=== PATIENT | female | born 1990 | race Caucasian/White ===

== ENCOUNTER 2023-03-31 14:37 | Emergency (ER) | payer OTHER, MEDICAID, SELFPAY ==
[2023-03-31] VITALS (8 sets, daily range): BP systolic 101–119; BP diastolic 57–66; PULSE 72–79; RESP 15–32; TEMP 36.8; O2SAT 98–100; BMI 32.6
--- NOTE | 2023-03-31 14:52 | DI.RAD.S_ITS ---
PROCEDURE: XR CHEST 1V INDICATIONS: Shortness of breath TECHNIQUE: One view of the chest was acquired. COMPARISON: None. FINDINGS: Surgical changes and devices: None. Lungs and pleura: Lungs are clear. No pleural effusions or pneumothorax. Mediastinum: Mediastinal contours appear normal. Heart size is normal. Bones and chest wall: No suspicious bony lesions. Overlying soft tissues appear unremarkable. IMPRESSION: No acute cardiopulmonary abnormality is seen. Dictated by: Ignacio Hoyos M.D. on 03/31/2023 at 15:23 Approved by: Ignacio Hoyos M.D. on 03/31/2023 at 15:23
[2023-03-31 15:15] LABS: Prothrombin Time 11.2 SECONDS (9.4-12.5)
[2023-03-31 15:21] LABS: Alanine Aminotransferase 10 IU/L (<35); Albumin 3.9 g/dL (3.5-5.0); Albumin Globulin Ratio 1.1 (1.0-2.8); Alkaline Phosphatase 108 U/L (38-126); Aspartate Aminotransferase 17 IU/L (14-36); BUN Creatinine Ratio 16.7 (6-22); Bilirubin Total 0.4 mg/dL (0.2-1.3); Blood Urea Nitrogen 6 mg/dL (7-17); Calcium 9.2 mg/dL (8.4-10.2); Carbon Dioxide 24 mmol/L (22-32); Chloride 103 mmol/L (98-107); Estimated Glomerular Filt Rate > 60 mL/min (>60); Globulin 3.5 g/dL (1.7-4.1); Glucose 73 mg/dL (70-100); HEMOLYSIS < 15 (0-50); Potassium 3.5 mmol/L (3.4-5.1); Sodium 134 mmol/L (137-145); Total Protein 7.4 g/dL (6.3-8.2)
[2023-03-31 15:23] LABS: Lactate (Lactic Acid) 0.8 mmol/L (0.7-2.1)
[2023-03-31 15:27] LABS: Add Manual Diff / Slide Review NO; Basophils Absolute Auto 100 /uL (0-100); Basophils Percent Auto 0.6 % (0-2); Eosinophils Absolute Auto 100 /uL (0-450); Eosinophils Percent Auto 0.5 % (2-4); Hematocrit 32.8 % (36-46); Hemoglobin 11.2 g/dL (12.0-16.0); Lymphocytes Absolute Auto 1700 /uL (1100-4500); Lymphocytes Percent Auto 14.5 % (25-40); Mean Corpuscular HGB Conc 34.1 % (30-36); Mean Corpuscular Hemoglobin 28.9 PG (26-34); Mean Corpuscular Volume 84.6 fL (80-100); Monocytes Absolute Auto 500 /uL (0-900); Monocytes Percent Auto 4.1 % (3-14); Neutrophils Absolute Auto 9500 /uL (1500-7000); Neutrophils Percent Auto 80.3 % (50-75); Platelet Count 485 X10^3/uL (150-400); Red Blood Cell Count 3.87 X10^6/uL (4.0-5.2); Red Cell Distribution Width 13.6 % (11.6-14.8); White Blood Cell Count 11.9 X10^3/uL (4.5-11.0)
[2023-03-31 15:32] LABS: NT-proBNP (BNP-Adult 18+) 31 pg/mL (<125); Troponin I < 0.012 ng/mL (0.01-0.034)
--- NOTE | 2023-03-31 16:39 | ED_ITS ---
HPI - SOB/Dyspnea General Chief Complaint: Shortness of Breath/Dyspnea Stated Complaint: SOB elevated heart rate numbness in legs Time Seen by Provider: 03/31/23 16:20 Source: patient Mode of arrival: Ambulatory Limitations: no limitations History of Present Illness HPI Narrative: Patient is a 32-year-old female without significant past medical history presenting today with chest pain in her palpitations. She reports that she was sitting still when her heart rate went up to 101 according to her walks. She felt a little short of breath but it quickly resolved. She denies any fever chills. No recent travel not on control no hemoptysis. No abdominal Related Data Allergies Allergy/AdvReac Type Severity Reaction Status Date / Time No Known Drug Allergies Allergy Verified 03/31/23 14:48 Patient History Social History Smoking Status: Unknown if ever smoked Smoking Status: Unknown if ever smoked alcohol intake frequency: holidays/special occasions only Substance Use Type: does not use Exam Initial Vital Signs Initial Vital Signs: Vital Signs Temperature 98.2 F 03/31/23 14:40 Pulse Rate 76 03/31/23 14:40 Respiratory Rate 15 03/31/23 14:40 Blood Pressure 119/66 03/31/23 14:40 Pulse Oximetry 99 03/31/23 14:40 Oxygen Delivery Method Room Air 03/31/23 14:40 GENERAL: Alert pleasant well-appearing 32-year-old and in no acute distress. HEENT: Head atraumatic,EOMI, pupils reactive, face symmetric, moist mucous membranes CARDIOVASCULAR: Regular rate and rhythm without murmurs, rubs or gallops. RESPIRATORY: Breath sounds equal bilaterally, no wheezes rales or rhonchi. ABDOMEN: Soft, nontender. Normoactive bowel sounds all 4 quadrants. No guarding or rebound. EXTREMITIES: Normal range of motion, no clubbing or edema. Neurovascularly intact NEUROLOGICAL: Alert and oriented x4.Normal gait and speech. SKIN: Warm, dry, no laceration, no petechiae, no rashes or lesions. Scores HEART Score Heart Score history: Slightly Suspicious Heart Score EKG: Normal Heart Score Age: < 45 years old Heart Score risk factors: No known risk factors Heart Score troponin: < or = to normal limit Heart Score Total: 0 PERC Score Age greater than or equal to 50 years: No Heart rate greater than or equal to 100 bpm: No Room Air O2 Sat less than 95%: No Unilateral leg swelling: No Recent trauma or surgery: No Hemoptysis: No Prior PE or DVT: No Hormone Use: No Total PERC Score: 0 Course Orders Ordered: ED Orders 03/31/23 14:52 XR chest 1V Stat EKG-12 Lead Stat Measure peak expiratory flow ONCE RT Consult Eval and Treat NOW 03/31/23 14:55 Complete Blood Count AUTO DIFF Stat Comprehensive Metabolic Panel Stat Lactate (Lactic Acid) Stat NT-proBNP (BNP-Adult 18+) Stat Prothrombin Time INR Stat Troponin I Stat Vital Signs Vital signs: Vital Signs - 8 hr 03/31/23 14:40 03/31/23 14:46 03/31/23 14:46 Temperature 98.2 F Pulse Rate 76 Respiratory Rate 15 Blood Pressure 119/66 119/66 Pulse Oximetry 99 99 Oxygen Delivery Method Room Air 03/31/23 15:00 03/31/23 15:30 03/31/23 16:00 Temperature Pulse Rate 79 76 78 Respiratory Rate 22 28 H 32 H Blood Pressure Pulse Oximetry 98 99 100 Oxygen Delivery Method MDM - SOB/Dyspnea Lab Data 03/31/23 14:55 03/31/23 14:55 Labs: Lab Results 03/31/23 Range/Units 14:55 WBC 11.9 H (4.5-11.0) X10^3/uL RBC 3.87 L (4.0-5.2) X10^6/uL Hgb 11.2 L (12.0-16.0) g/dL Hct 32.8 L (36-46) % MCV 84.6 (80-100) fL MCH 28.9 (26-34) PG MCHC 34.1 (30-36) % RDW 13.6 (11.6-14.8) % Plt Count 485 H (150-400) X10^3/uL Neut % (Auto) 80.3 H (50-75) % Lymph % (Auto) 14.5 L (25-40) % [place] % (Auto) 4.1 (3-14) % Eos % (Auto) 0.5 L (2-4) % Baso % (Auto) 0.6 (0-2) % Neut # (Auto) 9500 H (9078-4611) /uL Lymph # (Auto) 1700 (9998-2123) /uL [place] # (Auto) 500 (0-900) /uL Eos # (Auto) 100 (0-450) /uL Baso # (Auto) 100 (0-100) /uL PT 11.2 (9.4-12.5) SECONDS INR 1.0 (0.9-1.3) Sodium 134 L (137-145) mmol/L Potassium 3.5 (3.4-5.1) mmol/L Chloride 103 (98-107) mmol/L Carbon Dioxide 24 (22-32) mmol/L BUN 6 L (7-17) mg/dL Creatinine 0.36 L (0.52-1.04) mg/dL Estimated GFR > 60 (>60) mL/min BUN/Creatinine Ratio 16.7 (6-22) Glucose 73 (70-100) mg/dL Lactate 0.8 (0.7-2.1) mmol/L Calcium 9.2 (8.4-10.2) mg/dL Total Bilirubin 0.4 (0.2-1.3) mg/dL AST 17 (14-36) IU/L ALT 10 (<35) IU/L Alkaline Phosphatase 108 (38-126) U/L Troponin I < 0.012 (0.01-0.034) ng/mL NT-Pro-B Natriuret Pep 31 (<125) pg/mL Total Protein 7.4 (6.3-8.2) g/dL Albumin 3.9 (3.5-5.0) g/dL Globulin 3.5 (1.7-4.1) g/dL Albumin/Globulin Ratio 1.1 (1.0-2.8) Urine Dip Bedside Urine Glucose Negative Bedside Urine Bilirubin - Negative Bedside Urine Ketone - Negative Urine Specific [place] 1.025 Bedside Urine Occult Blood - Negative Bedside Urine pH 6.0 Bedside Urine Protein +/- 15 Bedside Urine Urobilinogen - Negative Bedside Urine Nitrite - Negative Bedside Urine Leukocytes - Negative Esterase Imaging Data Chest x-ray: Radiologist's Impression: PROCEDURE: XR CHEST 1V INDICATIONS: Shortness of breath TECHNIQUE: One view of the chest was acquired. COMPARISON: None. FINDINGS: Surgical changes and devices: None. Lungs and pleura: Lungs are clear. No pleural effusions or pneumothorax. Mediastinum: Mediastinal contours appear normal. Heart size is normal. Bones and chest wall: No suspicious bony lesions. Overlying soft tissues appear unremarkable. IMPRESSION: No acute cardiopulmonary abnormality is seen. Dictated by: Ignacio Hoyos M.D. on 03/31/2023 at 15:23 ECG Data Interpretation: Sinus rhythm rate 73 [place] interval 138 QRS 72 QTC [address] changes or T-wave inversions MDM Narrative Medical decision making narrative: Patient 32-year-old female presenting today with palpitations. It does not seem like they last a long. Heart rate was only as high as 101. She has been a normal sinus Rhythm here in the ED. blood work has been reviewed overall reassuring no significant leukocytosis or anemia no electrolyte abnormality and negative troponin. Suspicion for pulmonary embolism she has no risk factors and is negative PERC score. Chest x-ray does not show any abnormality. Discharge Plan Departure Patient Disposition: Home Clinical Impression: Heart palpitations Instructions: DI for Palpitations Activity Restrictions/Additional Instructions: *You have been diagnosed with palpitations *What to do: At this time please follow-up your primary care provider. Blood work and x-ray overall reassuring *Continue to take medications as directed *Follow up with your primary care provider in 2-3 days or call [phone] *Return to ER if you should have increased shortness of breath persistent elevated heart rate dizziness lightheadedness passing or any new, worsening or concerning symptoms Referrals: [facility], [Other] Stand Alone Forms: Patient Portal/API
== END 2023-03-31 17:00 | disposition home or self-care (01) ==
PROVIDERS: Emergency Provider Emergency Medicine
DX: R00.2 Palpitations (principal); R06.02 Shortness of breath
CPT/HCPCS: 36415; 71045; 80053; 81003; 83605; 83880; 84484; 85025; 85610; 93005; 99284

== ENCOUNTER 2023-10-03 22:55 | Emergency (ER) | payer OTHER, MEDICAID, SELFPAY ==
[2023-10-03 23:29] VITALS: BP 142/63; PULSE 61; RESP 16; TEMP 36.4; O2SAT 97; BMI 30.6
--- NOTE | 2023-10-04 05:34 | ED.ABDPAIN ---
HPI - Abdominal Pain General Chief Complaint: Abdominal Pain Stated Complaint: heartburn, back pain Time Seen by Provider: 10/03/23 23:51 Source: patient Mode of arrival: Ambulatory History of Present Illness HPI narrative: Patient left without being seen by provider Related Data Allergies Allergy/AdvReac Type Severity Reaction Status Date / Time No Known Drug Allergies Allergy Verified 03/31/23 14:48 Patient History Social History Smoking Status: Unknown if ever smoked Smoking Status: Unknown if ever smoked alcohol intake frequency: holidays/special occasions only Substance Use Type: marijuana Exam Initial Vital Signs Initial Vital Signs: Vital Signs Temperature 97.5 F L 10/03/23 23:29 Pulse Rate 61 10/03/23 23:29 Respiratory Rate 16 10/03/23 23:29 Blood Pressure 142/63 H 10/03/23 23:29 Pulse Oximetry 97 10/03/23 23:29 Oxygen Delivery Method Room Air 10/03/23 23:29 Course Orders Ordered: Discontinued Medications Al Hydrox/Mg Hydrox/Simethicone 20 ml/ Lidocaine HCl 15 ml 0 ml PO NOW ONE Stop: 10/03/23 23:52 Vital Signs Vital signs: Vital Signs - 8 hr 10/03/23 23:29 Temperature 97.5 F L Pulse Rate 61 Respiratory Rate 16 Blood Pressure 142/63 H Pulse Oximetry 97 Oxygen Delivery Method Room Air Discharge Plan Departure Patient Disposition: Left Without Being Seen Clinical Impression: Patient left without being seen
== END 2023-10-04 00:15 | disposition left against medical advice (07) ==
PROVIDERS: Emergency Provider Emergency Medicine
DX: M54.9 Dorsalgia, unspecified (principal)
CPT/HCPCS: 99281

== ENCOUNTER 2024-07-04 14:02 | Emergency (ER) | payer OTHER, SELFPAY ==
[2024-07-04 14:11] VITALS: BP 137/65; PULSE 64; RESP 18; TEMP 36.8; O2SAT 99; BMI 29.8
--- NOTE | 2024-07-04 14:17 | DI.RAD.S_ITS ---
PROCEDURE: XR FINGER RT MIN 2V INDICATIONS: cut finger/numbness TECHNIQUE: AP hand, 2 views of the 3rd finger(s) acquired. COMPARISON: None. FINDINGS: Bones: No fractures or dislocations. No suspicious bony lesions. Soft tissues: Soft tissue swelling surrounding distal portion of 3rd finger is seen. No suspicious soft tissue calcifications. IMPRESSION: No acute 3rd finger fracture or dislocation. No radiopaque foreign body is seen. Soft tissue swelling surrounding distal portion of 3rd finger. Dictated by: Naresh Fletcher M.D. on 07/04/2024 at 14:37 Approved by: Naresh Fletcher M.D. on 07/04/2024 at 14:43
--- NOTE | 2024-07-04 14:26 | PC.NURSE ---
Pt cut right middle digit on glass vase. pt has a half brownlee shaped laceration on finger and extending into nail bed.
[2024-07-04] MEDS: TET,DIPH,PERTUSS(ACELL),VAC/PF 0.5 ML SYRINGE IM (14:31)
--- NOTE | 2024-07-04 14:36 | ED_ITS ---
HPI - Wound/Laceration General Chief Complaint: Wound/Laceration Stated Complaint: Cut on right middle finger Time Seen by Provider: 07/04/24 14:33 Source: patient Mode of arrival: Ambulatory History of Present Illness HPI narrative: 33-year-old female with no reported past medical history presents to the ED status post a right middle finger injury sustained just prior to arrival. Patient was carrying a glass vase, when she slipped on some mud, causing her to fall and punched her right middle finger into the vase, breaking it. Patient sustained a laceration to the tip of her right middle fingertip. Last tetanus is unknown. No numbness, tingling, weakness. There is full range of motion. Bleeding is controlled with pressure. Related Data Allergies Allergy/AdvReac Type Severity Reaction Status Date / Time No Known Drug Allergies Allergy Verified 03/31/23 14:48 Review of Systems Constitutional Constitutional: Denies chills, Denies fatigue, Denies fever(s), Denies frequent falls, Denies lethargy and Denies weakness Eyes Eyes: Denies change in vision, Denies eye discharge, Denies irritation and Denies loss of vision ENT Ears, Nose, Mouth, and Throat: Denies change in voice, Denies dizziness, Denies neck pain, Denies sore throat and Denies throat swelling Cardiovascular Cardiovascular: Denies chest pain, Denies irregular heart rhythm, Denies lightheadedness, Denies palpitations, Denies dyspnea, Denies dyspnea on exertion and Denies orthopnea Respiratory Respiratory: Denies cough, Denies dyspnea, Denies dyspnea on exertion and Denies wheezing Gastrointestinal Gastrointestinal: Denies abdominal pain, Denies change in bowel habits, Denies diarrhea, Denies nausea and Denies vomiting Musculoskeletal Musculoskeletal: Denies neck pain and Denies numbness Integumentary/Breasts Skin/Breast: Denies pruritus, Denies erythema, Denies rash and Denies wounds Comments: Right middle finger laceration Neurologic Neurologic: Denies behavioral changes, Denies confusion, Denies dizziness, Denies frequent falls, Denies loss of vision, Denies numbness and Denies weakness Psychiatric Psychiatric: Denies anxiety, Denies behavioral changes, Denies confusion, Denies depression, Denies homicidal ideation and Denies suicidal ideation Endocrine Endocrine: Denies fatigue, Denies flushing and Denies palpitations Hematologic/Lymphatic Hematologic/Lymphatic: Denies easy bruising Allergic/Immunologic Allergic/Immunologic: Denies urticaria, Denies throat swelling and Denies wheezing Patient History Social History Smoking Status: Never smoker Smoking Status: Never smoker alcohol intake frequency: holidays/special occasions only Exam Narrative Exam Narrative: Const General:?cooperative, healthy appearing and comfortable [facility] Head:?normal to inspection Ears:?hearing grossly normal bilaterally Nose:?external nose normal Face and sinus:?normal facial exam and sinuses nontender Mouth:?oral mucosae normal Throat:?posterior oropharynx normal Eyes General:?appearance normal, both eyes and all related structures Neck Neck:?normal visual inspection and no lymphadenopathy noted Resp Effort & Inspection:?normal respiratory effort Auscultation:?clear to auscultation bilaterally Cardio Rate:?regular rate Rhythm:?regular rhythm Musculoskeletal/integumentary there is a U shaped laceration to the tip of the right middle finger. bleeding is controlled with pressure. neurovascularly intact. Full range of motion. Neuro General:?patient alert, patient awake and patient oriented x3 Initial Vital Signs Initial Vital Signs: Vital Signs Temperature 98.2 F 07/04/24 14:11 Pulse Rate 64 07/04/24 14:11 Respiratory Rate 18 07/04/24 14:11 Blood Pressure 137/65 07/04/24 14:11 Pulse Oximetry 99 07/04/24 14:11 Oxygen Delivery Method Room Air 07/04/24 14:11 Procedures Laceration Repair Laceration 1: Site: hand Side (If applicable): right Size (cm): 1 Description: other (u shaped) Local Anesthetic: lidocaine 1% Amount of anesthesia used (mL): 4 Pre-repair: wound explored, irrigated extensively and deep structures intact Skin layer closed with: nylon Skin layer suture size: 5-0 Number of sutures: 4 Technique: simple, interrupted Course Orders Ordered: ED Orders 07/04/24 14:17 XR finger RT min 2V Stat Discontinued Medications Acetaminophen (Acetaminophen 325 Mg Tablet) 975 mg PO NOW ONE Stop: 07/04/24 15:32 Diphtheria/Tetanus/Acell Pertussis (Tet,Diph,Pertuss(Acell),Vac/Pf 0.5 Ml Syringe) 0.5 ml IM .ONCE ONE Stop: 07/04/24 14:28 Last Admin: 07/04/24 14:31 Dose: 0.5 ml Documented By: GABINO Ibuprofen (Ibuprofen 400 Mg Tablet) 800 mg PO NOW ONE Stop: 07/04/24 15:32 Vital Signs Vital signs: Vital Signs - 8 hr 07/04/24 14:11 Temperature 98.2 F Pulse Rate 64 Respiratory Rate 18 Blood Pressure 137/65 Pulse Oximetry 99 Oxygen Delivery Method Room Air MDM - Wound/Laceration MDM Narrative Medical decision making narrative: 33-year-old female with no reported past medical history presents to the ED status post a right middle finger injury sustained just prior to arrival. X-ray obtained, which was without fractures or dislocation. No radiopaque foreign body was seen either. There is soft tissue swelling surrounding distal portion of 3rd finger. Tetanus was updated. Laceration was repaired with 4 sutures. Sutures will need to be removed in 7-10 days. Signs of infection, wound care, suture removal discussed with patient. Patient given Tylenol and ibuprofen for pain. ED return precautions discussed with patient. Patient verbalized understanding. Medical records reviewed: Yes Discharge Plan Departure Patient Disposition: Home Clinical Impression: Laceration Instructions: DI for Laceration Repair Activity Restrictions/Additional Instructions: You were evaluated in the ED today for a finger injury. Your x-ray was normal. Your finger laceration was repaired with 4 sutures. The sutures will need to be removed in 7-10 days. You may go to a walk-in clinic, your PCP's office or return to the ED for suture removal. Your tetanus was also updated today, which will be valid for the next 10 years. Please watch for signs of infection including worsening redness, pain, swelling, warmth, discharge. Return to the ED if you note any signs of infection. Please keep the wound clean and dry for the 1st 24 hours, following which you may wash gently with soap and water. Please be sure to change any wet dressings immediately. You may continue to take Tylenol and ibuprofen for pain. Stand Alone Forms: Patient Portal/API/Survey
[2024-07-04] MEDS: IBUPROFEN 400 MG TABLET 800 MG PO (15:43)
[2024-07-04] MEDS: ACETAMINOPHEN 325 MG TABLET 975 MG PO (15:44)
== END 2024-07-04 15:49 | disposition home or self-care (01) ==
PROVIDERS: Emergency Provider Student in an Organized Health Care Education/Training Program
DX: S61.212A Laceration without foreign body of right middle finger without damage to nail, initial encounter (principal); W01.110A Fall on same level from slipping, tripping and stumbling with subsequent striking against sharp glass, initial encounter; Z23 Encounter for immunization
CPT/HCPCS: 12001; 73140; 90471; 99283; 99284; 90715